=== PATIENT | female | born 1945 | race Caucasian/White ===

== ENCOUNTER 2019-04-25 06:05 | Inpatient (IN) | payer MEDICARE, BC ==
--- NOTE | 2019-04-13 09:35 | HP ---
HISTORY AND PHYSICAL: DATE OF SURGERY: 04/25/19 DATE OF OFFICE VISIT: 04/12/19 SURGEON: Deena Minaya MD * (DICTATED BY JORDAN MUÑOZ) PROCEDURE: Right total knee arthroplasty. CHIEF COMPLAINT: Right knee pain. HISTORY OF PRESENT ILLNESS: Ms. Wilkins is a 73-year-old female with continued complaints of right knee pain. She has failed conservative treatment and elected to proceed with a right total knee arthroplasty. PAST MEDICAL HISTORY: Denies. PAST SURGICAL HISTORY: Tonsillectomy, tubal ligation, bilateral carpal tunnel release. CURRENT MEDICATIONS: Calcium with vitamin D. ALLERGIES: No known drug allergies. FAMILY HISTORY: Diabetes. SOCIAL HISTORY: She is a 73-year-old female, she lives with her . She does not smoke or use drugs. REVIEW OF SYSTEMS: A complete 14-point review of systems was reviewed with the patient, it is all negative and noncontributory. She denies history of DVT, PE , hepatitis, HIV, or anesthesia problems. PHYSICAL EXAMINATION GENERAL: She is well-developed, well-nourished, in no acute distress. VITAL SIGNS: She stands 60 inches tall, weighs 144 pounds, her blood pressure is 110/50, heart rate 60. HEENT: Normocephalic and atraumatic. NECK: Supple. No palpable lymph nodes. PULMONARY: The lungs are clear to auscultation bilaterally. CARDIO: Regular rate and rhythm. Strong S1 and S2. ABDOMEN: Soft, nontender, and nondistended. NEUROLOGIC: She is alert and oriented x3. MUSCULOSKELETAL: Right lower extremity, the skin is intact. There are no open wounds or abrasions. There is a moderate effusion at the right knee joint. She has a 15 degree valgus deformity of the knee with MCL laxity. Range of motion is 5 to 120 degrees of flexion. She is able to dorsiflex and plantarflex , has a 2+ dorsalis pedis pulse and intact sensation. ASSESSMENT AND PLAN: Ms. Wilkins is a 73-year-old female with end-stage osteoarthritis of the right knee. She has failed conservative treatment and elected to proceed with a right total knee arthroplasty. This surgery is scheduled for 04/25/[address] Minaya. discussed the risks and benefits of the surgery at today's visit and all of her questions were answered. She will follow with Dr. Minaya 2 weeks after the surgery. JORDAN MUÑOZ [id number]/[facility] #: [id number] LM
[~2019-04-25 06:05] MED LIST: Buffered Lidocaine 1% SYRIN* 1 ML/SYRINGE INTRADERM ONE; Famotidine IV* 10 MG/ML 2 ML (20 mg) IV ONE; Gabapentin CAP(*) 100 MG PO ONE; Lactated Ringers 1000 ML Bag* 1,000 ML IV SCH; Tranexamic Acid 1,000 MG in NS 0.9% 50 ML* (outpatient use) IV SCH; celeCOXIB CAP* 200 MG PO ONE
--- OUTSIDE RECORDS SUMMARY | 2019-04-25 06:08 | XMS REPORT | Continuity of Care Document ---
:1945 External Reference #:[id number] Author Name Amber Britton Care Team Providers Name Role Phone Aminata Alaniz MD - Family Care Team Information Probation And Parole Officer [phone] Medicine Problems Active Problems Provider Date Localized, primary osteoarthritis Deena Minaya M.D. Onset: 06/22/2018 Social History Type Date Description Comments Sex Unknown ETOH Use Denies alcohol use Tobacco Use Start: Unknown Patient has never smoked Smoking Status Reviewed: 04/12/19 Patient has never smoked Exercise Type/Frequency Exercises regularly Allergies, Adverse Reactions, Alerts Description No Known Drug Allergies Medications Active Medications SIG Qnty Indications Ordering Provider Date Calcium + D every day as Unknown needed [id number] Chewtabs Medications Administered in Office Medication SIG Qnty Indications Ordering Provider Date Depomedrol 40MG Deena Minaya M.D. 02/17/2019 Injection Depomedrol 40MG Deena Minaya M.D. 10/14/2018 Injection Depomedrol 40MG Deena Minaya M.D. 06/22/2018 Injection Immunizations Description No Information Available Vital Signs Date Vital Result Comment 04/12/2019 9:02am Height 60 inches 5'0" Weight 144.00 lb Heart Rate 60 /min BP Systolic 110 mmHg BP Diastolic 60 mmHg Body Temperature 97.4 F Pain Level 2 BMI (Body Mass Index) 28.1 kg/m2 02/17/2019 9:39am Height 60 inches 5'0" Weight 145.00 lb Heart Rate 70 /min BP Systolic 108 mmHg BP Diastolic 62 mmHg Respiratory Rate 12 /min Pain Level 5 BMI (Body Mass Index) 28.3 kg/m2 Results Test Acquired Date Facility Test Result H/L Range Note CBC Auto 04/12/2019 [facility] White Blood 8.2 10^3/uL Normal 3.5-10.[address] [place] [address] [phone] Red Blood Count 4.52 10^6/uL Normal 3.70-4.87 Hemoglobin 13.8 g/dL Normal 12.0-16.0 Hematocrit 41 % Normal 35-47 Mean Corpuscular Volume 91 fL Normal 80-97 Mean Corpuscular Hemoglobin 30 pg Normal 27-31 Mean Corpuscular HGB Conc 33 g/dL Normal 31-36 Red Cell Distribution Width 14 % Normal 10-15 Platelet Count 229 10^3/uL Normal 150-450 Mean Platelet Volume 9.4 fL Normal 7.4-10.4 Abs Neutrophils 5.4 10^3/uL Normal 1.5-7.7 Abs Lymphocytes 2.2 10^3/uL Normal 1.0-4.8 Abs Monocytes 0.5 10^3/uL Normal 0-0.8 Abs Eosinophils 0.1 10^3/uL Normal 0-0.6 Abs Basophils 0.1 10^3/uL Normal 0-0.2 Abs Nucleated RBC 0.0 10^3/uL Granulocyte % 65.2 % Lymphocyte % 26.2 % Monocyte % 5.9 % Eosinophil % 1.8 % Basophil % 0.9 % Nucleated Red Blood Cells % 0.1 Comp Metabolic 04/12/2019 [facility] Sodium 139 mmol/L Normal 135-[address] [place] [address] [phone] Potassium 4.1 mmol/L Normal 3.5-5.0 Chloride 105 mmol/L Normal 101-111 Co2 Carbon Dioxide 26 mmol/L Normal 22-32 Anion Gap 8 mmol/L Normal 2-11 Glucose 85 mg/dL Normal 70-100 Blood Urea Nitrogen 23 mg/dL Normal 6-24 Creatinine 0.79 mg/dL Normal 0.51-0.95 BUN/Creatinine Ratio 29.1 High 8-20 Calcium 9.2 mg/dL Normal 8.6-10.3 Total Protein 6.7 g/dL Normal 6.4-8.9 Albumin 4.1 g/dL Normal 3.2-5.2 Globulin 2.6 g/dL Normal 2-4 Albumin/Globulin Ratio 1.6 Normal 1-3 Total Bilirubin 0.80 mg/dL Normal 0.2-1.0 Alkaline Phosphatase 84 U/L Normal 34-104 Alt 14 U/L Normal 7-52 Ast 15 U/L Normal 13-39 Egfr Non- 70.9 >60 Egfr 85.8 >60 2 Inr/Protime 04/12/2019 [facility] Inr 0.97 Normal 0.82-1.[address] [place] [address] [phone] Laboratory test 04/12/2019 [facility] Partial 32.8 Normal 26.0 -38.0 [address] [address] Time PTT [phone] Urinalysis 04/12/2019 [facility] Urine Color Yellow Profile [address] [place] [address] [phone] Urine Appearance Clear Urine Specific [place] 1.020 Normal 1.010-1.030 Urine pH 7.0 Normal 5-9 Urine Urobilinogen Negative Negative Urine Ketones Negative Negative Urine Protein Negative Negative Urine Leukocytes 1+ Abnormal Negative Urine Blood Negative Negative Urine Nitrite Negative Negative Urine Bilirubin Negative Negative Urine Glucose Negative Negative Urine White Blood Cell 1+(6-10/hpf) Abnormal Absent Urine Red Blood Cell 1+(3-5/hpf) Abnormal Absent Urine Bacteria Absent Absent Urine Squamous Epithelial Cell Present Abnormal Absent Type & Screen 04/12/2019 [facility] Patient Blood Type O Positive [address] [place] [address] [phone] Antibody Screen NEGATIVE 1 AA 04/25 2 Because ethnic data is not always readily available, this report includes an eGFR for both -Americans and non- Americans. The National Kidney Disease Education Program (NKDEP) does not endorse the use of the MDRD equation for patients that are not between the ages of 18 and 70, are , have extremes of body size, muscle mass, or nutritional status, or are non- or non-. According to the National Kidney Foundation, irrespective of diagnosis, the stage of the disease is based on the level of kidney function: Stage Description GFR(mL/min/1.73 m(2)) 1 Kidney damage with normal or decreased GFR 90 2 Kidney damage with mild decrease in GFR 60-89 3 Moderate decrease in GFR 30-59 4 Severe decrease in GFR 15-29 5 Kidney failure <15 (or dialysis) 3 Standard intensity warfarin therapeutic range: 2.0-3.0 High intensity warfarin therapeutic range: 2.5-3.5 4 AA 04/25 Procedures Date Code Description Status 02/17/2019 Inject/Drain Joint/Bursa Major W/O US Completed 10/14/2018 Inject/Drain Joint/Bursa Major W/O US Completed Medical Devices Description No Information Available Encounters Type Date Location Provider Dx Diagnosis Office Visit 02/17/2019 [facility] Deena Minaya, M17.11 Unilateral primary 9:15a at [place] M.DLa osteoarthritis, right knee M21.061 Valgus deformity, not elsewhere classified, right knee M25.461 Effusion, right knee M25.561 Pain in right knee M25.562 Pain in left knee M25.462 Effusion, left knee Assessments Date Code Description Provider 04/12/2019 M21.061 Valgus deformity, not elsewhere classified, Deena Minaya M.D. right knee 04/12/2019 M17.11 Unilateral primary osteoarthritis, right knee Deena Minaya M.D. 04/12/2019 M25.561 Pain in right knee Deena Minaya M.D. 04/12/2019 M25.461 Effusion, right knee Deena Minaya M.D. 02/17/2019 M17.11 Unilateral primary osteoarthritis, right knee Deena Minaya M.D. 02/17/2019 M21.061 Valgus deformity, not elsewhere classified, Deena Minaya M.D. right knee 02/17/2019 M25.461 Effusion, right knee Deena Minaya M.D. 02/17/2019 M25.561 Pain in right knee Deena Minaya M.D. 02/17/2019 M25.562 Pain in left knee Deena Minaya M.D. 02/17/2019 M25.462 Effusion, left knee Deena Minaya M.D. 10/14/2018 M25.561 Pain in right knee Deena Minaya M.D. 10/14/2018 M25.461 Effusion, right knee Deena Minaya M.D. 10/14/2018 M17.0 Bilateral primary osteoarthritis of knee Deena Minaya M.D. Plan of Treatment Future Appointment(s):05/05/2019 1:15 pm - Deena Minaya M.D. at [facility] at Rbrljl4404/25/2019 12:30 pm - BREANA Garcia at [facility]04/25/2019 12:30 pm - JORDAN Billings at [facility]04/25/2019 12:30 pm - Deena Minaya M.D. at [facility] at [place]/12/2019 - Deena Minaya M.D.M21.061 Valgus deformity, not elsewhere classified, right kneeFollow up:Follow up: 2 weeks after dxjaishN55.11 Unilateral primary osteoarthritis, right kneeM25.561 Pain in right kneeM25.461 Effusion, right knee Functional Status Description No Information Available Mental Status Description No Information Available Referrals Description No Information Available
--- OUTSIDE RECORDS SUMMARY | 2019-04-25 06:08 | XMS REPORT | Continuity of Care Document ---
:1945 External Reference #:[id number] Author Name Deena Minaya M.D. (transmitted by agent of provider Donna Mishra) Address [address] [place] [address] Care Team Providers Name Role Phone Aminata Alaniz MD - Family Care Team Information Shop Coordinator [phone] Medicine Problems Active Problems Provider Date Localized, [...] + D every day as Unknown needed [id number] Chewtabs Medications Administered in Office Medication SIG [...] BMI (Body Mass Index) 28.3 kg/m2 Results Description No Information Available Procedures Date Code Description Status 02/17/201985342 Inject/Drain Joint/Bursa Major W/O US Completed 10/14/2018 Inject/Drain Joint/Bursa Major W/O US Completed Medical Devices Description No Information Available Encounters Type Date Location Provider Dx Diagnosis Office Visit 02/17/2019 [facility] Deenarandal Minaya, M17.11 Unilateral primary 9:15a at [facility] osteoarthritis, right knee M21.061 Valgus deformity, not [...] 1:15 pm - Deena Minaya M.D. at [facility] at Ylmnde8404/25/2019 12:30 pm - BRAENA Garcia at [facility] at Qfqqsv3704/25/2019 12:30 pm - JORDAN Billings at [facility] at [place]gz9104/25/2019 12:30 pm - Deena Minaya M.D. at [facility] at Egtjhq9004/12/2019 - Deena Minaya M.D.M21.061 Valgus deformity, not elsewhere classified, right kneeFollow up:Follow up: 2 weeks after nscpjpvI77.11 Unilateral primary osteoarthritis, right kneeM25.561 Pain in right kneeM25.461 Effusion, right knee Functional Status Description No Information Available Mental Status Description No Information Available Referrals Description No Information Available
--- OUTSIDE RECORDS SUMMARY | 2019-04-25 06:08 | XMS REPORT | Continuity of Care Document ---
:1945 External Reference #:[id number] Author Name Aminata Alaniz M.D. Address [address] [place] [address] Care Team Providers Name Role Phone [facility] - Diagnostic Care Team Information Managing Consultant Clinical Professor Radiology Aminata Alaniz M.D. - Family Medicine Care Team Information Managing Consultant Clinical Professor Unavailable [facility] & Care Team Information Managing Consultant Clinical Professor [phone] lymphedema - Physical Therapist Ramirez Horan MD - Gastroenterology Care Team Information Managing Consultant Clinical Professor [phone] Problems Active Problems Provider Date Hyperlipidemia Aminata Alaniz M.D. Onset: 07/31/2015 Localized, primary osteoarthritis Aminata Alaniz M.D. Onset: 12/20/2018 Social History Type Date Description Comments Sex Unknown Tobacco Use Start: Unknown Nonsmoker ETOH Use Denies alcohol use Tobacco Use Start: Unknown Patient has never smoked Smoking Status Reviewed: 04/01/19 Patient has never smoked Allergies, Adverse Reactions, Alerts Description No Known Drug Allergies Medications Active Medications SIG Qnty Indications Ordering Date Provider Shingrix administer vaccine 1units Aminata Alaniz, 12/20/2018 50mcg/0.5ML when available and M.D. Suspension Rec repeat in 2-6 months Calcium 600+D 1 po qd Unknown [id number] Tablets History Medications Doxycycline Hyclate 2 by mouth x 1 2caps S80.861A Aminata Alaniz, 2018 - M.D. 04/01/2019 100mg Capsules Immunizations CPT Code Status Date Vaccine Lot # [id number] Given 07/31/2015 Pneumococcal Conjugate Vacc-13 [id number] Given 07/24/2013 Pneumococcal Immunization [id number] Given 05/27/2012 Zostivax [id number] Given 05/27/2012 Tdap Tetanus, W Pertussis [id number] Vital Signs Date Vital Result Comment 04/01/2019 8:58am BP Systolic 112 mmHg BP Diastolic 56 mmHg Heart Rate 72 /min Body Temperature 97.9 F Respiratory Rate 16 /min Height 59.75 inches 4'11.75" Weight 142.00 lb BMI (Body Mass Index) 28.0 kg/m2 03/28/2019 4:33pm BP Systolic 100 mmHg BP Diastolic 52 mmHg Heart Rate 60 /min Body Temperature 98.4 F Respiratory Rate 12 /min Height 59.75 inches 4'11.75" Weight 143.00 lb BMI (Body Mass Index) 28.2 kg/m2 Results Test Date Facility Test Result H/L Range Note Lipid Profile 12/23/2018 [facility]) Cholesterol 223 mg/dL High 120-200 Triglycerides 84 mg/dL 30-200 HDL Cholesterol 65 mg/dL 30-85 LDL (Calculated) 141 CALC High 0-129 VLDL Cholesterol 17 mg/dL 0-50 HDL Risk Factor 3.4 CALC 0.0-4.4 Comprehensive Metabolic 12/23/2018 [facility]) Sodium 139 mEq/L 134-149 Prof Potassium 4.4 mEq/L 3.6-5.5 Chloride 103 mEq/L 94-112 Carbon Dioxide 22 mEq/L 21-32 Glucose 104 mg/dL 70-105 BUN 22 mg/dL 6-26 Creatinine 0.8 mg/dL 0.6-1.4 BUN/Creat Ratio 27.5 CALC 8.0-36.0 Calcium 9.1 mg/dL 8.6-10.2 Total Protein 6.7 g/dL 6.4-8.3 Albumin 4.3 g/dL 3.8-5.5 Globulin 2.4 g/dL 2.0-4.8 A/G Ratio 1.8 CALC 0.6-2.3 Alk. Phosphatase 80 U/L 30-110 Alt (SGPT) 15 U/L 7-35 Ast (Sgot) 14 U/L 5-34 Total Bilirubin 1.1 mg/dL 0.2-1.3 GFR Non- >60 ml/min/1.73m^ >=60 GFR >60 ml/min/1.73m^ >=60 Laboratory test finding 12/23/2018 Joey Claire([facility]) TSH 2.83 mIU/L 0.50-6.00 CBC Electronic a 12/23/2018 Joey Claire([facility]) WBC 7.0 x10^3/UL 4.0- 10.0 RBC 4.48 x10^6/UL 3.93-6.00 HGB 13.5 g/dL 12.0-17.0 HCT 41 % 35-50 MCV 92.0 fL 80.0-95.0 MCH 30.1 pg 25.6-32.2 MCHC 32.8 g/dL 32.2-36.0 RDW-CV 13.0 % 11.6-14.4 PLT 257 x10^3/UL 163-400 MPV 10.8 fL 9.4-12.4 Damir# 4.34 x10^3/UL 1.56-6.13 Lymph# 1.98 x10^3/UL 1.18-3.74 Piute# 0.45 x10^3/UL 0.24-0.82 Eos # 0.2 x10^3/UL 0.0-0.5 Baso # 0.07 x10^3/UL 0.01-0.08 Damir% 62.1 % 34.0-70.0 Lymph % 28.3 % 20.0-52.0 Piute% 6.4 % 5.0-12.0 Eos% 2.1 % 0.7-7.0 Baso% 1.0 % 0.1-1.2 Laboratory test 12/23/2018 [facility] Hemoglobin A1c 5.7 % 4.1-5.7 finding (607)- - (a) Laboratory test 11/11/2018 [facility] SEE RESULT 1, 2 finding Pathology BELOW 1 5580-A:Morphology: dark black thin papule ;DDX: Malignant Melanoma vs. Pigmented Seborrheic Kerat 2 SEE RESULT BELOW Name: HARDIK PRO : [address]: Cherie Fenton MD Acct: [id number] Unit: [id number] AGE: 73 Location: [facility] Re11/11/18 SEX: F Status: REG REF SPEC: [id number] NOEMY: 11/11/18-[address] [facility] [address]: Cherie Fenton MD REQ: [id number] RECD: 11/11/18 STATUS: KIM SYKES DR: Aminata Alaniz MD _ ORDERED: LEVEL 4, IMMUNO-FIRST, IMMUNO-ADDL COMMENTS: [id number] FINAL DIAGNOSIS Skin, left upper back, biopsy: -- Solar lentigo. COMMENT: Deeper levels of sectioning and SOX-10 and Melan-A immunohistochemical stains, with appropriately reacting controls, were performed in the evaluation of this lesion and support the diagnosis. PRE-OPERATIVE DIAGNOSIS Dark black thin papule; malignant melanoma vs pigmented seborrheic keratosis GROSS DESCRIPTION The specimen is received in formalin labeled, Left Upper Back, and consists of a 0.8 x 0.6 cm mottled schwartz-white ovoid hairbearing skin shave with an eccentric ill- defined speckled brown macule measuring up to 0.3 cm. The specimen is inked, trisected and submitted entirely in one cassette. Signed by and Reported on: Anisha Hooker MD 11/14/18 1704 END OF REPORT DEPARTMENT OF PATHOLOGY, [address] [place] [address] Edward Owusu M.D. Director [facility] # [id number] Procedures Date Code Description Status 01/04/2019 [id number] Mammogram Completed 10/21/2017 [id number] Mammogram Completed 10/14/2017 [id number] Colonoscopy Completed 09/09/2016 [id number] Mammogram Completed 06/14/2016 [id number] Bone Mineral Density Test Completed 08/13/2015 [id number] Mammogram Completed 08/08/2014 [id number] Mammogram Completed 08/02/2013 [id number] Mammogram Completed 06/06/2012 [id number] Mammogram Completed 10/14/2010 [id number] Colonoscopy Completed 09/12/2009 [id number] Mammogram Completed Medical Devices Description No Information Available Encounters Type Date Location Provider Dx Diagnosis Office Visit 03/28/2019 Main Office Aminata Alaniz M.D. S80.861A Insect bite 4:20p (nonvenomous), right lower leg, init encntr W57.xxxA Bit/stung by nonvenom insect & oth nonvenom arthropods, init Assessments Date Code Description Provider 04/01/2019 Z01.818 Encounter for other preprocedural examination Aminata Alaniz M.D. 04/01/2019 M17.11 Unilateral primary osteoarthritis, right knee Aminata Alaniz M.D. 04/01/2019 E78.5 Hyperlipidemia, unspecified Aminata Alaniz M.D. 04/01/2019 R73.01 Impaired fasting glucose Aminata Alaniz M.D. 03/28/2019 S80.861A Insect bite (nonvenomous), right lower leg, Aminata Alaniz M.D. initial encounter 03/28/2019 W57.xxxA Bitten or stung by nonvenomous insect and Aminata Alaniz M.D. other nonvenomous arthropods, initial encounter 12/23/2018 R73.01 Impaired fasting glucose Aminata Alaniz M.D. 12/23/2018 E78.5 Hyperlipidemia, unspecified Aminata Alaniz M.D. 12/20/2018 Z00.00 Encounter for general adult medical Aminata Alaniz M.D. examination without abno 12/20/2018 E78.5 Hyperlipidemia, unspecified Aminata Alaniz M.D. 12/20/2018 Z12.31 Encounter for screening mammogram for Aminata Alaniz M.D. malignant neoplasm of 12/20/2018 M17.0 Bilateral primary osteoarthritis of knee Aminata Alaniz M.D. 12/20/2018 R73.01 Impaired fasting glucose Aminata Alaniz M.D. 12/20/2018 B35.1 Tinea unguium Aminata Alaniz M.D. 12/20/2018 R00.2 Palpitations Aminata Alaniz M.D. Plan of Treatment 04/01/2019 - Aminata Alaniz M.D.Z01.818 Encounter for other preprocedural examinationComments:Cleared for surgery given PAT is normal (labs ekg). Will fax note to ordering physician. HOLD NSAIDS and all supplements 7 days prior to ufjohvqX87.11 Unilateral primary osteoarthritis, right kneeComments:to have vqlyakqbneiL71.5 Hyperlipidemia, kgpprhcvftnN24.01 Impaired fasting glucoseAllComments:Medication Management Patient Understands medications she's taking? Yes No Are there Barriers to Adherence? Yes No Has the patient been asked about herbal supplements and therapies, and OTC meds? Yes No Functional Status Description No Information Available Mental Status Description No Information Available Referrals Description No Information Available
--- OUTSIDE RECORDS SUMMARY | 2019-04-25 06:08 | XMS REPORT | Continuity of Care Document ---
:1945 External Reference #:[id number] Author Name Aminata Alaniz M.D. Address [address] [place] [address] Care Team Providers Name Role Phone [facility] - Diagnostic Care Team Information [facility] Radiology Aminata Alaniz M.D. - Family Medicine Care Team Information [facility] Unavailable [facility] & Care Team Information [facility] [phone] lymphedema - Physical Therapist Ramirez Horan MD - Gastroenterology Care Team Information [facility] Problems Active Problems Provider Date Hyperlipidemia Aminata Alaniz M.D. Onset: 07/31/2015 Localized, primary osteoarthritis Aminata Alaniz M.D. Onset: 12/20/2018 Social History Type Date Description Comments Sex Unknown Tobacco Use Start: Unknown Nonsmoker ETOH Use Denies alcohol use Tobacco Use Start: Unknown Patient has never smoked Smoking Status Reviewed: 12/20/18 Patient has never smoked Allergies, Adverse Reactions, Alerts Description No Known Drug Allergies Medications Active Medications SIG Qnty Indications Ordering Date Provider Doxycycline Hyclate 2 by mouth x 1 2caps S80.861A Aminata Alaniz, 03/28/2019 M.D. 100mg Capsules Shingrix administer vaccine 1units Aminata Alaniz, 12/20/2018 50mcg/0.5ML when available and M.D. Suspension Rec repeat in 2-6 months Calcium 600+D 1 po qd Unknown [id number] Tablets Immunizations CPT Code Status Date Vaccine Lot # [id number] Given 07/31/2015 Pneumococcal Conjugate Vacc-13 [id number] Given 07/24/2013 Pneumococcal Immunization [id number] Given 05/27/2012 Zostivax [id number] Given 05/27/2012 Tdap Tetanus, W Pertussis [id number] Vital Signs Date Vital Result Comment 03/28/2019 4:33pm BP Systolic 100 mmHg BP Diastolic 52 mmHg Heart Rate 60 /min Body Temperature 98.4 F Respiratory Rate 12 /min Height 59.75 inches 4'11.75" Weight 143.00 lb BMI (Body Mass Index) 28.2 kg/m2 12/20/2018 11:10am BP Systolic 116 mmHg BP Diastolic 64 mmHg Heart Rate 60 /min Body Temperature 98.1 F Respiratory Rate 16 /min Height 59.75 inches 4'11.75" Measured 09/02/16 Weight 147.00 lb BMI (Body Mass Index) 28.9 kg/m2 Results Test Date Facility Test Result H/L Range Note Lipid Profile 12/23/2018 [facility]) Cholesterol 223 mg/dL High 120-200 Triglycerides 84 [...] >60 ml/min/1.73m^ >=60 Laboratory test finding 12/23/2018 [facility] TSH 2.83 mIU/L 0.50-6.00 CBC Electronic [facility] 12/23/2018 [facility] WBC 7.0 x10^3/UL 4.0- 10.0 RBC 4.48 x10^6/UL 3.93-6.00 HGB 13.5 g/dL 12.0-17.0 HCT 41 % 35-50 MCV 92.0 fL 80.0-95.0 MCH 30.1 pg 25.6-32.2 MCHC 32.8 g/dL 32.2-36.0 RDW-CV 13.0 % 11.6-14.4 PLT 257 x10^3/UL 163-400 MPV 10.8 fL 9.4-12.4 Damir# 4.34 x10^3/UL 1.56-6.13 Lymph# 1.98 x10^3/UL 1.18-3.74 Dixie# 0.45 x10^3/UL 0.24-0.82 Eos # 0.2 x10^3/UL 0.0-0.5 Baso # 0.07 x10^3/UL 0.01-0.08 Damir% 62.1 % 34.0-70.0 Lymph % 28.3 % 20.0-52.0 Dixie% 6.4 % 5.0-12.0 Eos% 2.1 % 0.7-7.0 Baso% 1.0 % 0.1-1.2 Laboratory test 12/23/2018 [facility] Hemoglobin A1c 5.7 % 4.1-5.7 finding (607)- - (a) Laboratory test 11/11/2018 [facility] [place] RESULT 1, 2 finding Pathology BELOW 1 1090-A:Morphology: dark black thin papule ;DDX: Malignant Melanoma vs. Pigmented Seborrheic Kerat 2 SEE RESULT BELOW Name: HARDIK PRO : [address]: Cherie Fenton MD Acct: [id number] Unit: [id number] AGE: 73 Location: [facility] Re11/11/18 SEX: F Status: REG REF SPEC: [id number] NOEMY: 11/11/[address] [facility] [address]: Cherie Fenton MD REQ: [id number] RECD: 11/11/18 STATUS: KIM SYKES DR: Aminata Alaniz MD _ ORDERED: LEVEL 4, IMMUNO-FIRST, IMMUNO-ADDL COMMENTS: [id number] FINAL DIAGNOSIS Skin, left upper back, biopsy: [...] 1704 END OF REPORT DEPARTMENT OF PATHOLOGY, [address] [place] [address] Edward Owusu M.D. Director [facility] # [id number] Procedures Date Code Description Status 01/04/2019 [id number] Mammogram Completed 10/21/2017 [id number] Mammogram Completed 10/14/2017 [id number] Colonoscopy Completed 09/09/2016 [id number] Mammogram Completed 06/14/2016 [id number] Bone Mineral Density Test Completed 08/13/2015 [id number] Mammogram Completed 08/08/2014 [id number] Mammogram Completed 08/02/2013 [id number] Mammogram Completed 06/06/2012 [id number] Mammogram Completed 10/14/2010 [id number] Colonoscopy Completed 09/12/2009 [id number] Mammogram Completed Medical Devices Description No Information Available Encounters Description No Information Available Assessments Date Code Description Provider 03/28/2019 S80.861A Insect bite (nonvenomous), right lower leg, Aminata Alaniz M.D. initial encounter 12/23/2018 R73.01 Impaired fasting glucose [...] Palpitations Aminata Alaniz M.D. Plan of Treatment Future Appointment(s):04/01/2019 9:00 am - Aminata Alaniz M.D. at [id number] - Aminata Alaniz M.D.S80.861A Insect bite (nonvenomous), right lower leg , initial encounterNew Medication:Doxycycline Hyclate 100 mg - 2 by mouth x 1Comments:Discussed lyme disease precaution and treatment. When spending time outdoors, check entire body for ticks daily. Use tweezers to carefully grasp the tick as close to the skin as possible. Gently pull it out with a slow, steady motion because you want to extract the entire tick, including its head. If any residual remains, your body will expel it. The bite site may be red and itchy due to the tick's saliva. Monitor the site of the tick bite over the next two to three weeks to see if you develop a rash. Less than half of the local deer tick population carries Lyme disease and ticks are inefficient attransmitting it, which makes your chances of being infected pretty low especially if the attachment is less than 48 hours. Prophylactic antibiotics are not needed for every tick bite. Monitor for symptoms of lyme include a bull' s eye/target rash, fever, body aches, and flu like symptoms. Call if experiencing any symptoms or make an appointment.AllComments:Medication Management Patient Understands medications she's taking? Yes No Are there Barriers to Adherence? Yes No Has the patient been asked about herbal supplements and therapies, and OTC meds? Yes No Functional Status Description No Information Available Mental Status Description No Information Available Referrals Description No Information Available
[2019-04-25] MEDS ORDERED: celeCOXIB CAP* 200 MG ONE (06:41)
[2019-04-25] MEDS ORDERED: Gabapentin CAP(*) 100 MG ONE (06:41)
[2019-04-25] MEDS ORDERED: Famotidine IV* 10 MG/ML 2 ML (20 mg) ONE (06:42)
[2019-04-25] MEDS ORDERED: Buffered Lidocaine 1% SYRIN* 1 ML/SYRINGE INTRADERM ONE (06:42)
[2019-04-25] MEDS ORDERED: ceFAZolin 2 GM in NS PREMIX(*) 2 GM/100 ML BAG IVPB ONE (06:42)
[2019-04-25] MEDS ORDERED: Midazolam* 1 MG/ML 2 ML VIAL (2 MG) ONE (07:18)
[2019-04-25] MEDS ORDERED: KETAMINE HCL* 50 MG/ML 10 ML VIAL ONE (07:18)
[2019-04-25] MEDS ORDERED: fentaNYL* 50 MCG/ML 2 ML VIAL (100 MCG VIAL) ONE (07:18)
[2019-04-25] MEDS ORDERED: Lidocaine 2% PF * 5 ML VIAL ONE (07:19)
[2019-04-25] MEDS ORDERED: ROPIVACAINE 5 MG/ML 30 ML BTL (0.5%) ONE ×2 (07:19→07:26)
[2019-04-25] MEDS ORDERED: Rocuronium* 10 MG/ML VIAL ONE (07:42)
[2019-04-25] MEDS ORDERED: Propofol* 10 MG/ML 20 ML BTL ONE (07:42)
[2019-04-25] MEDS ORDERED: HYDROmorphone INJ1* 1 MG/ML SYRINGE ONE ×2 (08:41→11:33)
[2019-04-25] MEDS ORDERED: Ondansetron INJ* 2 MG/ML VIAL ONE (08:51)
[2019-04-25] MEDS ORDERED: Glycopyrrolate IV* 0.2 MG/ML 1 ML VIAL ONE (09:06)
[2019-04-25] MEDS ORDERED: HYDROmorphone INJ1* 1 MG/ML SYRINGE IV PRN (09:21)
[2019-04-25] MEDS ORDERED: fentaNYL* 50 MCG/ML 2 ML VIAL (100 MCG VIAL) IV PRN (09:21)
[2019-04-25] MEDS ORDERED: Naloxone* 0.4 MG/ML 1 ML VIAL IV PRN (09:21)
[2019-04-25] MEDS ORDERED: DiMENhydriNATE IV* 50 MG/ML VIAL IV PUSH PRN (09:21)
[2019-04-25] MEDS ORDERED: EPHEDrine (Pressors)* 50 MG/ML VIAL ONE (09:46)
[2019-04-25] MEDS ORDERED: Cyclobenzaprine TAB* 10 MG PO PRN (10:58)
[2019-04-25] MEDS ORDERED: Ondansetron TAB* 4 MG PO PRN (10:58)
[2019-04-25] MEDS ORDERED: Magnesium Hydroxide LIQ* 30 ML UDC PO PRN (10:58)
[2019-04-25] MEDS ORDERED: Polyethylene Glycol 3350* 17 GM PACKET PO PRN (10:58)
[2019-04-25] MEDS ORDERED: Ondansetron INJ* 2 MG/ML VIAL IV PRN (10:58)
[2019-04-25] MEDS ORDERED: Morphine INJ* 2 MG/ML 1 ML SYRINGE (TWO MG - NEW SYRINGE VERSION) IV PRN (10:58)
[2019-04-25] MEDS ORDERED: diPHENhydraMINE IV* 50 MG/ML 1 ml VIAL (BENADRYL) IV PRN (10:58)
[2019-04-25] MEDS ORDERED: Ondansetron ODT TAB* 4 MG PO PRN (10:58)
[2019-04-25] MEDS ORDERED: diPHENhydraMINE PO* 25 MG PO PRN (10:58)
[2019-04-25] MEDS ORDERED: DiMENhydriNATE IV* 50 MG/ML VIAL ONE (12:21)
[2019-04-25] MEDS: Lactated Ringers 1000 ML Bag* 1,000 ML IV SCH ×2 (12:41→23:36)
[2019-04-25] MEDS ORDERED: Phenylephrine 10 MG/ML VIAL* 1 ML VIAL ONE (13:24)
[2019-04-25] MEDS: traMADol TAB* 50 MG PO PRN (14:39)
[2019-04-25] MEDS: Acetaminophen TAB* 325 MG PO SCH ×2 (14:39→22:33)
--- NOTE | 2019-04-25 15:13 | PN ---
Progress Note - Progress Note Date of Service: 04/25/19 Note: resting comfortably in recovery; pain well controlled; able to dorsi flex/ plantar flex, 2+ DP pulse and intact sensation
[2019-04-25] MEDS: ceFAZolin 1 GM ADVAN(*) 1 GM in NS 0.9% 50 ML* 50 ML IVPB SCH (16:26)
[2019-04-25] MEDS ORDERED: Scopolamine 1.5 mg* PATCH ONE (18:31)
[2019-04-25] MEDS ORDERED: Scopolamine 1.5 mg* PATCH TRANSDERM ONE (18:45)
--- NOTE | 2019-04-25 20:06 | OP ---
Operative Report - Blank - Operative Report Date of Operation: 04/25/19 Note: HARDIK PRO 1945 Date of Surgery: 04/25/19 Deena Minaya MD Ferry Pilot: Ivelisse ORTEGA did help throughout the procedure with preparation of the knee, wound retraction, manipulation of the knee, and wound closure. Anesthesiologist: Dr. Hastings Anesthesia Type: Spinal Preoperative Diagnosis: Right severe degenerative osteoarthritis of the knee Postoperative Diagnosis: As above Procedure Performed: Right Total Knee Arthroplasty with the Navio Robotic Navigation System Tourniquet time: 76 minutes Complications: None Specimen: Bone and cartilage from the right knee joint sent to pathology. Hardware Used: Cemented White [employer] Nephew total knee hardware was used - For the femur a size 5 right narrow legion posterior stabilized femoral component, for the tibia a size 3 right trudy II tibial baseplate, for the insert a size 9mm 3-4 posterior stabilized articular polyethylene insert, and for the patella a size 29 3-peg all poly patella. Brief History/Indication: HARDIK PRO was known in clinic and had a history of severe right knee pain and swelling. She failed conservative treatment with anti-inflammatories, pain pills, intra-articular injections and physical therapy. She elected to undergo right total knee arthroplasty due to continued pain and decreased quality of life. Radiographs showed severe end stage osteoarthritis of the knee with bone on bone contact. Informed consent was obtained from the patient. She understood the risks of surgery included but were not limited to: bleeding, infection, damage to nearby structures, intraoperative fracture, nerve palsy, failure of the hardware, early loosening, knee stiffness or loss of motion, anesthesia complications, stroke, heart attack , blood clot and . She wished to proceed. Intra-Operative Findings: Intraoperatively the patient was noted to have severe loss of cartilage in all 3 compartments of the knee. Description of the Procedure: HARDIK PRO was identified in the preanesthesia unit. Her right knee was marked as the correct operative side. Informed consent was signed and placed in the chart. The patient was taken to the operating room and placed under anesthesia without complication. A mir catheter was placed. A tourniquet was placed on the right thigh. The right lower extremity was prepped and draped in the usual sterile fashion. Preoperative time-out was made to correctly identify the patient, side and site. Appropriate intraoperative antibiotics were given within one hour of incision. Tourniquet was inflated. A midline incision was made and carried sharply down to the extensor mechanism. A new 10 blade was used to make a standard medial parapatellar arthrotomy. The patella was subluxed laterally. Electrocautery was used to dissect soft tissue off the superomedial tibia to the midsagittal plane. The knee was flexed up. The anterior horn of the lateral meniscus and the ACL/PCL were sharply incised. The two checkpoint screws and the 4 pins were placed. The femoral and tibial arrays were placed and the anatomy of the knee was mapped. The [place] navigation system was used to determine cut angles and hardware size/placement. The Navio robotic aniket was used to make the distal femoral cut. The external rotation guide was pinned on the distal femur and the distal femur was sized to a size 5. The size 5 multi-cutting jig was pinned on the distal femur. The oscillating saw was used to make the appropriate 4 chamfer cuts. Next the PCL was completely released. The extramedullary tibial cutting guide was pinned on the proximal tibia and the Navio angular guide was used to decide on the angle of the tibial cut. The oscillating saw was used to make the proximal tibial cut perpendicular to the mechanical axis of the tibia. The bone was carefully removed. The knee was brought out into full extension. The spacer block was placed and had excellent fit with the knee in full extension. The medial and lateral ligaments were well balanced. The flexion and extension gaps were well balanced. The knee was flexed up. Lamina edi specialist was placed both medially and laterally. Any remaining meniscus was removed with electrocautery. Curved osteotome was used to remove any posterior osteophytes. The tibial tray and drop everett were placed and confirmed a satisfactory tibial cut. The size 5 right femoral trial was impacted onto the distal femur. This trial had excellent fit and stability. The box for the posterior stabilized implant was prepared using a box cut osteotome and a reamer. Next a tibial tray trial and 9 mm insert trial was placed. The knee was taken through a range of motion and had full extension to 130 degrees of flexion. Patellofemoral tracking was satisfactory. Final checkpoints were obtained on the Navio system. The two screws and four pins were carefully removed. The patella was inverted and sized to a size 29. Three peg holes were drilled through the size 29 drill guide. The trial patella was placed and the knee was taken through a range of motion. There was satisfactory patellofemoral tracking. All trials were removed. The tibia was subluxed anteriorly and sized to a size 3. The proximal tibial was prepared with a size 3 keel punch. All bony cut surfaces were irrigated with sterile saline and dried. Final implants were cemented into place starting with the tibia, followed by the femur, and last the patella. A 9 mm insert trial was placed and the knee was brought into full extension. Tourniquet was turned down and the knee was copiously irrigated with sterile saline. Electrocautery was used to obtain meticulous hemostasis. Once the cement had fully cured, the insert trial was removed. Any excess cement was removed from around the hardware and capsule. Final insert chosen was a 9 mm posterior stabilized Trudy II articular insert size 3-4. Stability of the insert was checked and noted to be stable. The extensor mechanism was closed using number 1 vicryls. The rest of the incision was closed in a layered fashion using 0 and 2-0 vicryls. The skin was closed using 3-0 nylon suture. Sterile xeroform, 4x4s and webril were used to cover the incision. Jose wrap and cold pack were used to cover the dressings. The patients anesthesia was reversed without difficulty. She was taken to the PACU in stable condition. Intended weight-bearing will be as tolerated.
[2019-04-25] MEDS: Docusate CAP* 100 MG PO SCH (21:52)
[2019-04-25] MEDS: Magnesium Hydroxide LIQ* 30 ML UDC PO SCH (21:53)
[2019-04-26] MEDS: ceFAZolin 1 GM ADVAN(*) 1 GM in NS 0.9% 50 ML* 50 ML IVPB SCH ×2 (00:28→07:59)
[2019-04-26] MEDS: oxyCODONE/Acetamin 5/325 MG* TAB PO PRN ×3 (04:02→12:25)
[2019-04-26] MEDS: Acetaminophen TAB* 325 MG PO SCH ×3 (06:07→20:53)
[2019-04-26] MEDS: Docusate CAP* 100 MG PO SCH ×2 (08:01→20:50)
[2019-04-26] MEDS: Apixaban* 2.5 MG TAB PO SCH ×2 (08:01→20:50)
[2019-04-26] MEDS: Vitamin THERAPEUTIC TAB PO SCH (08:01)
[2019-04-26] MEDS: Magnesium Hydroxide LIQ* 30 ML UDC PO SCH (08:01)
[2019-04-26 08:03] LABS: Hematocrit 33 % (35-47); Hemoglobin 11.4 g/dL (12.0-16.0); Mean Platelet Volume 9.2 fL (7.4-10.4); Platelet Count 198 10^3/uL (150-450)
[2019-04-26 08:20] LABS: BUN/Creatinine Ratio 16.2 (8-20); Calcium 8.7 mg/dL (8.6-10.3); EGFR African American 92.6 (>60); EGFR Non-African American 76.5 (>60)
--- NOTE | 2019-04-26 09:33 | PN ---
Progress Note - Progress Note Date of Service: 04/26/19 SOAP: Subjective: []Patient seen and examined at bedside. She feels well without complaints. Right knee pain is well controlled, she has been out of bed and walked with PT. Denies CP, SOB, nausea. Mild dizziness with position change, does have vertigo history. Objective: []Gen: NAD, appears well RLE: Right knee dressing CDI, thigh soft, DF/PF intact, DP2+, sensation intact to light touch distally Calves supple and nontender without erythema, edema or palpable cords Assessment: []Right total knee replacement Plan: []WBAT PT eliquis 2.5 mg po BID x 30 days post op slight hyponatremia will recheck tomorrow Plan DC home tomorrow Vital Signs Temp 98.3 F 04/26/19 07:32 Pulse 74 04/26/19 07:32 Resp 18 04/26/19 08:00 BP 112/41 04/26/19 07:32 Pulse Ox 94 04/26/19 08:00 Intake & Output 04/25/19 04/26/19 04/26/19 18:59 06:59 18:59 Intake Total 1050 1986 Output Total 250 600 Balance 800 1386 Intake: IV Fluids 950 1122 ABX - CEFAZOLIN 141 LR 850 981 NS 100ML, Cefazolin 2G 100 IVPB 54 ABX - CEFAZOLIN 54 Oral 100 760 Lawson Irrigate Amount 50 Output: Lawson 250 600 Laboratory Last Values Hgb 11.4 g/dL (12.0-16.0) L 04/26/19 07:51 Hct 33 % (35-47) L 04/26/19 07:51 Plt Count 198 10^3/uL (150-450) 04/26/19 07:51 MPV 9.2 fL (7.4-10.4) 04/26/19 07:51 Sodium 133 mmol/L (135-145) L 04/26/19 07:51 Potassium 4.0 mmol/L (3.5-5.0) 04/26/19 07:51 Chloride 103 mmol/L (101-111) 04/26/19 07:51 Carbon Dioxide 26 mmol/L (22-32) 04/26/19 07:51 Anion Gap 4 mmol/L (2-11) 04/26/19 07:51 BUN 12 mg/dL (6-24) 04/26/19 07:51 Creatinine 0.74 mg/dL (0.51-0.95) 04/26/19 07:51 Est GFR ( Amer) 92.6 (>60) 04/26/19 07:51 Est GFR (Non-Af Amer) 76.5 (>60) 04/26/19 07:51 BUN/Creatinine Ratio 16.2 (8-20) 04/26/19 07:51 Glucose 132 mg/dL (70-100) H 04/26/19 07:51 Calcium 8.7 mg/dL (8.6-10.3) 04/26/19 07:51
[2019-04-26] MEDS: Lactated Ringers 1000 ML Bag* 1,000 ML IV SCH (10:19)
[2019-04-27] MEDS: Magnesium Hydroxide LIQ* 30 ML UDC PO SCH ×2 (00:13→08:24)
[2019-04-27] MEDS: Acetaminophen TAB* 325 MG PO SCH ×2 (05:51→13:32)
[2019-04-27 06:06] LABS: Hematocrit 33 % (35-47); Hemoglobin 11.1 g/dL (12.0-16.0); Mean Platelet Volume 9.9 fL (7.4-10.4); Platelet Count 194 10^3/uL (150-450)
[2019-04-27] MEDS: traMADol TAB* 50 MG PO PRN (08:24)
[2019-04-27] MEDS: Vitamin THERAPEUTIC TAB PO SCH (08:24)
[2019-04-27] MEDS: Apixaban* 2.5 MG TAB PO SCH (08:24)
[2019-04-27] MEDS: Docusate CAP* 100 MG PO SCH (08:24)
--- NOTE | 2019-04-27 10:01 | DS ---
Orthopedic Discharge Summary - Discharge Summary Date of Admission:04/25/19 Date of Discharge: 04/27/19 Date of Surgery: 04/25/19 Attending Orthopedic Provider: Dr Minaya Pre-operative Diagnosis: right knee osteoarthritis Operative Procedure: right total knee replacement Disposition of Patient: home with VNS Condition of Patient: stable History: HARDIK PRO is a 73 year old F with years of increasingly severe right knee pain. Patient has failed conservative management and has elected to undergo a right total knee replacement Hospital Course: HARDIK was admitted to [facility] on 04/25/19. Patient underwent a right total knee replacement without complication followed by a brief recovery in PACU and transfer to the Short Stay Surgical Unit in stable condition. Our physical therapy service also participated in this patients care. Post-op day 1: patient was alert and in no acute distress. Dressing was clean, dry and intact. Operative extremity dorsiflexion and plantarflexion intact, sensation intact to light touch distally, DP2+. Post-op day two: Patient feels well, denies CP, SOB, dizziness, nausea. Dressing was changed, incision was clean, dry and intact. Patient was deemed to be medically and orthopedically stable for discharge. Physical therapy goals were met. Home Medications Medication Instructions Recorded Confirmed Type Calcium Carbonate/Vitamin D3 1 each PO QAM 04/12/19 04/25/19 History [Calcium 600-D3 20Mcg(800 Unit)] Acetaminophen TAB* [Tylenol TAB*] 975 mg PO Q8HR tab 04/27/19 Rx Apixaban* [Eliquis*] 2.5 mg PO BID #60 tab 04/27/19 Rx Docusate CAP* [Colace Cap*] 100 mg PO BID PRN #90 cap 04/27/19 Rx traMADol TAB* [Ultram*] 50 mg PO Q6H PRN #40 tab MDD 8 04/27/19 Rx Discharge Instructions following Orthopedic Surgery: Activity: * Weight Bearing as tolerated * Continue physical therapy and occupational therapy exercises as shown * Home PT * Wound care: * OK to shower on post-op day 3, no bathing, swimming, or submerging wound. * Use gentle soap, pat dry. Cover with gauze, KARLA wrap or tape. * Visiting home nurse to do wound checks. Call Orthopedic office for: * Increased drainage * Redness * Increased pain * Fever Go to ER with shortness of breath or chest pain. Diet: * Regular diet * Increase fluids and fiber to prevent constipation. * Continue to use stool softeners, call office if no bowel motion within 48 hours. Medications See Home Medication List in your packet for medications that you should take after discharge. DVT Prophylaxis: Increases bleeding tendency Eliquis Dosin.5 mg, 1 tab every 12 hours x 30 days Pain Control: Tramadol 50 mg tabs. take 1 tab for moderate pain and 2 tabs for every pain every 6 hours as needed. Wean off to tylenol alone as soon as pain allows. Hold for sedation Max daily dose of tylenol is 4000 mg from all sources. Antibiotics are required prior to any dental work. FOLLOW UP: Follow up with Dr. Rodriguez] Within 10-14 days, call for appointment Please call our office with any questions or concerns ([phone]) [place] [facility] [place]
[2019-04-27] MEDS ORDERED: Bisacodyl SUPP* 10 MG SUPP PR PRN (10:58)
[2019-04-27 11:10] VITALS: BP 123/54
[2019-04-28] MEDS ORDERED: Scopolamine PATCH Remove* 1 NOTE MISC PATCH OFF ONE (18:45)
== END 2019-04-27 13:43 | disposition home health service (06) | DRG 470 ==
LOC: AA 06:05 → SSU 10:58
PROVIDERS: ADMIT Orthopaedic Surgery Adult Reconstructive Orthopaedic Surgery; ATTEND Orthopaedic Surgery Adult Reconstructive Orthopaedic Surgery
PROC: 8E0Y0CZ Robotic Assisted Procedure of Lower Extremity, Open Approach (ICD-10-PCS; 2019-04-25)
PROC: 0SRC0J9 Replacement of Right Knee Joint with Synthetic Substitute, Cemented, Open Approach (ICD-10-PCS; principal; 2019-04-25 07:45)
DX: M17.11 Unilateral primary osteoarthritis, right knee (principal); E87.1 Hypo-osmolality and hyponatremia; M25.461 Effusion, right knee; M21.061 Valgus deformity, not elsewhere classified, right knee; M85.80 Other specified disorders of bone density and structure, unspecified site; M81.0 Age-related osteoporosis without current pathological fracture; M25.761 Osteophyte, right knee; E78.5 Hyperlipidemia, unspecified; Z85.828 Personal history of other malignant neoplasm of skin; Z91.018 Allergy to other foods; Z79.899 Other long term (current) drug therapy
CPT/HCPCS: 36415; 80048; 84300; 85014; 85018; 85049; 88305; 88311; A9270-GY; C1776; G8978-GP-CL; G8979-GP-CI; J0690; J1170; J1240; J2250; J2405; J2704; J2795; J3010